=== PATIENT | female | born 2000 | race Caucasian/White ===

== ENCOUNTER 2021-12-24 20:15 | Emergency (ER) | payer BC ==
[2021-12-24 20:30] VITALS: PULSE 103; RESP 16; TEMP 99.3
[2021-12-24 21:54] LABS: Basophils # (A) 0.1 k/uL (0-0.2); Basophils % (A) 1 %; Eosinophils # (A) 0.1 k/uL (0-0.7); Eosinophils % (A) 2 %; HCT 38.7 % (34.0-46.0); Hypochromasia Moderate; Lymphocytes # (A) 1.1 k/uL (1.0-4.8); Lymphocytes % (A) 23 %; MCH 22.8 pg (25.0-35.0); MCV 73.6 fL (80.0-100.0); Mean Platelet Volume 7.6; Microcytosis Slight; Monocytes # (A) 0.5 k/uL (0-1.0); Monocytes % (A) 10 %; Neutrophils # (A) 3.1 k/uL (1.3-7.7); Neutrophils % (A) 62 %; Platelet Count 294 k/uL (150-450); RBC 5.26 m/uL (3.80-5.40); RDW 14.4 % (11.5-15.5)
[2021-12-24 21:58] LABS: African American GFR (CKD) >90 (>60 ml/min/1.73 sqM); Anion Gap 9 mmol/L; Blood Urea Nitrogen 9 mg/dL (7-17); Calcium 8.7 mg/dL (8.4-10.2); Carbon Dioxide 23 mmol/L (22-30); Chloride 104 mmol/L (98-107); Glucose 101 mg/dL (74-99); Non-African American GFR(CKD) >90 (>60 ml/min/1.73 sqM); Potassium 3.8 mmol/L (3.5-5.1); Sodium 136 mmol/L (137-145)
--- NOTE | 2021-12-24 22:56 | ED ---
General Adult HPI - General Chief complaint: Fall Stated complaint: Dizziness,Covid symptoms Time Seen by Provider: 12/24/21 21:39 Source: patient, RN notes reviewed Mode of arrival: ambulatory Limitations: no limitations - History of Present Illness Initial comments: 21-year-old female presents to the emergency department for evaluation status post syncopal episode with fall. Patient states she was standing in the kitchen when she reports feeling nauseous and dizzy prior to passing out. Patient's father was present at the time and states she did strike her forehead on the refrigerator door handle as she fell to the ground. States she was unconscious for approximately 30-45 seconds. Patient remembers feeling poorly, but is unable to recall her fall. States she is feeling much improved at this time. Complains of mild headache, but denies nausea or dizziness currently. Regular, normal menstrual periods. No concerns of . Denies fever, chills, neck pain, back pain, chest pain, shortness of breath, abdominal pain, vomiting, di arrhea, or dysuria. - Related Data Allergies Allergy/AdvReac Type Severity Reaction Status Date / Time No Known Allergies Allergy Verified 12/24/21 20:31 Review of Systems ROS Statement: Those systems with pertinent positive or pertinent negative responses have been documented in the HPI. ROS Other: All systems not noted in ROS Statement are negative. General Exam Limitations: no limitations (Well-developed, well-nourished female in no acute distress. Initial temperature 39.3, pulse 103, respirations 16, blood pressure 126/86, pulse ox 98% on room air.) General appearance: alert, in no apparent distress Head exam: Present: atraumatic, normocephalic, normal inspection Eye exam: Present: normal appearance, PERRL, EOMI. Absent: scleral icterus, conjunctival injection, periorbital swelling, periorbital tenderness Pupils: Present: normal accommodation ENT exam: Present: normal exam, normal oropharynx, mucous membranes moist Neck exam: Present: normal inspection, full ROM. Absent: tenderness, meningismus, lymphadenopathy Respiratory exam: Present: normal lung sounds bilaterally. Absent: respiratory distress, wheezes, rales, rhonchi, stridor Cardiovascular Exam: Present: regular rate, normal rhythm, normal heart sounds. Absent: systolic murmur, diastolic murmur, rubs, gallop, clicks GI/Abdominal exam: Present: soft, normal bowel sounds. Absent: distended, tenderness, guarding, rebound, rigid Extremities exam: Present: normal inspection, full ROM, normal capillary refill. Absent: tenderness, pedal edema, joint swelling, calf tenderness Back exam: Present: normal inspection, full ROM. Absent: CVA tenderness (R), CVA tenderness (L), paraspinal tenderness, vertebral tenderness Neurological exam: Present: alert, oriented X3, CN II-XII intact, normal gait Expanded Patient oriented to: Present: person, place, time Speech: Present: fluid speech Cranial nerves: EOM's Intact: Normal, Nystagmus: Normal Cerebellar function: Finger to Nose: Normal, [place]berg: Normal Motor strength exam: RUE: 5, LUE: 5, RLE: 5, LLE: 5 Eye Response: (4) open spontaneously Motor Response: (6) obeys commands Verbal Response: (5) oriented [place] Total: 15 Psychiatric exam: Present: normal affect, normal mood Skin exam: Present: warm, dry, intact, normal color. Absent: rash Course Vital Signs 12/24/21 12/25/21 20:26 00:10 Temperature 99.3 F Pulse Rate 103 H Respiratory 16 16 Rate Blood Pressure 126/86 Blood Pressure 121/83 [Left Arm Sitting] Blood Pressure 121/82 [Left Arm Standing] Blood Pressure 127/84 [Left Arm Supine] O2 Sat by Pulse 98 98 Oximetry Medical Decision Making - Medical Decision Making This is a pleasant 21-year-old female who presents to the emergency department accompanied by her parents status post syncopal episode. Upon exam, patient is well-appearing and in no acute distress. She does endorse injury to her head, though there is no evidence of trauma. She is neurologically intact with no focal deficits therefore imaging is not indicated. Laboratory studies were obtained and are unremarkable. Urinalysis appears contaminated. EKG shows normal sinus rhythm. Orthostatic measurements are negative. Patient is ambulatory without dizziness. Tolerating oral intake without difficulty. She will be discharged home to follow up with her PCP for a recheck. Return mook eters discussed in detail. Patient and family verbalized understanding and agreed with this plan. Attending: Liz. - Lab Data Result diagrams: 12/24/21 20:48 12/24/21 20:48 Lab Results 0712/24/21 12/24/21 Range/Units 20:48 20:48 22:25 WBC 5.0 (3.8-10.6) k/uL RBC 5.26 (3.80-5.40) m/uL Hgb 12.0 (11.4-16.0) gm/dL Hct 38.7 (34.0-46.0) % MCV 73.6 L (80.0-100.0) fL MCH 22.8 L (25.0-35.0) pg MCHC 31.0 (31.0-37.0) g/dL RDW 14.4 (11.5-15.5) % Plt Count 294 (150-450) k/uL MPV 7.6 Neutrophils % 62 % Lymphocytes % 23 % Monocytes % 10 % Eosinophils % 2 % Basophils % 1 % Neutrophils # 3.1 (1.3-7.7) k/uL Lymphocytes # 1.1 (1.0-4.8) k/uL Monocytes # 0.5 (0-1.0) k/uL Eosinophils # 0.1 (0-0.7) k/uL Basophils # 0.1 (0-0.2) k/uL Hypochromasia Moderate Microcytosis Slight Sodium 136 L (137-145) mmol/L Potassium 3.8 (3.5-5.1) mmol/L Chloride 104 (98-107) mmol/L Carbon Dioxide 23 (22-30) mmol/L Anion Gap 9 mmol/L BUN 9 (7-17) mg/dL Creatinine 0.72 (0.52-1.04) mg/dL Est GFR (CKD-EPI)AfAm >90 (>60 ml/min/1.73 sqM) Est GFR (CKD-EPI)NonAf >90 (>60 ml/min/1.73 sqM) Glucose 101 H (74-99) mg/dL Calcium 8.7 (8.4-10.2) mg/dL Urine Color Yellow Urine Appearance Cloudy H (Clear) Urine pH 6.0 (5.0-8.0) Ur Specific [place] 1.036 H (1.001-1.035) Urine Protein 1+ H (Negative) Urine Glucose (UA) Negative (Negative) Urine Ketones Trace H (Negative) Urine Blood Negative (Negative) Urine Nitrite Negative (Negative) Urine Bilirubin Negative (Negative) Urine Urobilinogen 2.0 (<2.0) mg/dL Ur Leukocyte Esterase Small H (Negative) Urine RBC 2 (0-5) /hpf Urine WBC 6 H (0-5) /hpf Ur Squamous Epith Cells 12 H (0-4) /hpf Urine Bacteria Many H (None) /hpf Hyaline Casts 2 (0-2) /lpf Urine Mucus Many H (None) /hpf - EKG Data EKG shows normal: sinus rhythm Rate: normal EKG Comments: EKG obtained at 2032 shows sinus rhythm with short [place] interval and nonspecific T-wave abnormality. Ventricular rate 92, [place] interval 104, QRS duration 97, QT/QTC 350/400. Interpretation borderline ECG. Disposition Clinical Impression: Syncope Disposition: HOME SELF-CARE Condition: Stable Instructions (If sedation given, give patient instructions): Syncope (ED) Additional Instructions: Increase your intake of fluids; consider an electrolyte solution such as gatorade or powerade. Make your position changes slowly when moving from flat to sitting or sitting to standing. Follow up with your PCP for a recheck next week. Return to the emergency department with any new, worsening, or concerning symptoms. Is patient prescribed a controlled substance at d/c from ED?: No Referrals: Pineda Quintanilla MD [Primary Care Provider] - 1-2 days Time of Disposition: 23:49
[2021-12-24 22:58] LABS: Appearance,Urine Cloudy (Clear); Bilirubin,Urine Negative (Negative); Blood,Urine Negative (Negative); Color,Urine Yellow; Glucose,Urine (UA) Negative (Negative); Ketones,Urine Trace (Negative); Leukocyte Esterase,Urine Small (Negative); Nitrite,Urine Negative (Negative); Protein,Urine 1+ (Negative); Specific Gravity,Urine 1.036 (1.001-1.035)
[2021-12-24 22:59] LABS: Bacteria,Urine Many /hpf; Hyaline Casts,Urine 2 /lpf (0-2); Mucus,Urine Many /hpf; RBC,Urine 2 /hpf (0-5); Squamous Epithelial Cell,Urine 12 /hpf (0-4); WBC,Urine 6 /hpf (0-5)
[2021-12-25 00:17] VITALS: BP 127/84
== END 2021-12-25 01:26 | disposition home or self-care (01) ==
LOC: EC 20:15
DX: S09.90XA Unspecified injury of head, initial encounter (principal); R55 Syncope and collapse; W18.09XA Striking against other object with subsequent fall, initial encounter; Y92.000 Kitchen of unspecified non-institutional (private) residence as the place of occurrence of the external cause
CPT/HCPCS: 36415; 80048; 81001; 85025; 93005; 99284

== ENCOUNTER → 2023-04-09 | Outpatient (CLI) | payer BC ==
[2023-04-09 21:38] LABS: Basophils # (A) 0.08 X 10*3/uL (0.00-0.10); Basophils % (A) 1.2 %; Eosinophils # (A) 0.26 X 10*3/uL (0.04-0.35); Eosinophils % (A) 3.8 %; HCT 45.3 % (37.2-46.3); HGB 14.5 d/dL (12.0-15.0); Lymphocytes # (A) 2.31 X 10*3/uL (0.90-5.00); Lymphocytes % (A) 34.2 %; MCH 27.5 pg (27.0-32.0); MCV 85.8 FL (80.0-97.0); Mean Platelet Volume 10.7 FL (9.5-12.2); Monocytes # (A) 0.49 X 10*3/uL (0.20-1.00); Monocytes % (A) 7.2 %; NRBC Per 100 WBC 0 X 10*3/uL (0.00-0.01); Neutrophils % (A) 53.3 %; Platelet Count 314 X 10*3/uL (140-440); RBC 5.28 X 10*6/uL (4.10-5.20); RDW 13.2 % (11.5-14.5); WBC 6.76 X 10*3/uL (4.50-10.00)
[2023-04-09 22:00] LABS: % Iron Saturation 20.18 (12.00-45.00); ALT 13 U/L (8-44); AST 18 U/L (13-35); Albumin 4.7 d/dL (3.8-4.9); Albumin/Globulin Ratio 1.57 Ratio (1.60-3.17); Alkaline Phosphatase 84 U/L (41-126); Blood Urea Nitrogen 8.4 mg/dL (9.0-27.0); C Reactive Protein <0.30 mg/dL (0.00-0.80); Calcium 9.9 mg/dL (8.7-10.3); Carbon Dioxide 26.3 mmol/L (21.6-31.8); Chloride 102 mmol/L (96-109); Ferritin 17.2 ng/mL (10.0-291.0); Glucose 85 mg/dL (70-110); Iron 92 UG/DL (50-170); Magnesium 2.1 mg/dL (1.5-2.4); Potassium 5.1 mmol/L (3.5-5.5); Sodium 139 mmol/L (135-145); T4, Free (Free Thyroxine) 1.03 ng/dL (0.80-1.80); Total Bilirubin 0.5 mg/dL (0.3-1.2); Total Iron Binding Capacity 456 UG/DL (228-460); Total Protein 7.7 d/dL (6.2-8.2)
[2023-04-09 22:11] LABS: Erythrocyte Sedimentation Rate 12 mm/Hr (0-20)
== END | disposition home or self-care (01) ==
LOC: LABWHC1 14:02
PROVIDERS: ATTEND Nurse Practitioner Adult Health
DX: D50.9 Iron deficiency anemia, unspecified (principal); F41.8 Other specified anxiety disorders; R20.2 Paresthesia of skin
CPT/HCPCS: 36415; 80053; 82607; 82728; 83540; 83550; 83735; 84439; 84443; 85025; 85652; 86038; 86039; 86140